=== PATIENT | male | born 1965 | race Caucasian/White ===

== ENCOUNTER 2016-09-08 10:58 | Inpatient (IN) | payer BC ==
[~2016-09-08] VITALS: Ht 175.3 cm; Wt 120.2 kg
[2016-09-08 11:00] VITALS: BP 141/93
[2016-09-08] MEDS ORDERED: ATOR10TA PO (11:04)
[2016-09-08] MEDS ORDERED: TAMS0.4C96 PO (11:04)
[2016-09-08] MEDS ORDERED: SPIR25TA PO (11:04)
[2016-09-08] MEDS ORDERED: AMLO5TAB PO (11:04)
[2016-09-08] MEDS ORDERED: BALS750C2 PO (11:04)
--- NOTE | 2016-09-08 11:23 | NUR ---
Patient ambulated to bed 05.
--- NOTE | 2016-09-08 11:26 | NUR ---
51M BIB FAMILY C/O SHORTNESS OF BREATH W/ PRODUCTIVE COUGH X 2-3 WEEKS; PT STATES SHORTNESS OF BREATH WORSENS W/ ACTIVITY, AND "FEELS FINE" WHEN INACTIVE AND LIEING DOWN; BL LUNG SOUNDS CLEAR, RR EVEN/UNLABORED AT THIS TIME.PT STATES WENT TO SEE PCP AND WAS TOLD HAS "IRREGULAR HEART BEAT"; PT DENIES CHEST PAIN, OR ANY PAIN, N/V/D AT THIS TIME; A&OX4, PERRLA, SKIN IS WARM/DRY/INTACT AT THIS TIME; HX: HTN; PT PLACED ON MONITOR, RESTING IN BED W/ HOB ELEVATED AND IN LOWEST POSITION; POSTIONED FOR COMFORT; ER MD MADE AWARE OF STATUS. WILL CONTINUE TO MONITOR.
--- NOTE | 2016-09-08 11:30 | NUR ---
PT O2 SAT 97 % ON ROOM AIR AT THIS TIME; RR EVEN/UNLABORED; REFUSES SUPPLEMENTARY O2; STATES " I'M BREATHING FINE RIGHT NOW"; WILL CONTINUE TO MONITOR.
--- NOTE | 2016-09-08 11:42 | NUR ---
Dr. Gann evaluating patient at bedside.
--- NOTE | 2016-09-08 12:00 | NUR ---
LAB at bedside.
[2016-09-08 12:08] LABS: BASOPHILS # (AUTO) 0.3 K/uL (0.00-0.22); BASOPHILS % (AUTO) 3.2 % (0.0-2.0); EOSINOPHILS # (AUTO) 0.2 K/uL (0-0.4); EOSINOPHILS % (AUTO) 2.5 % (0.0-4.0); HEMATOCRIT 50.6 % (36-52); HEMOGLOBIN 16.2 g/dL (12.0-18.0); LYMPHOCYTES # (AUTO) 2.3 K/uL (2.0-11.5); MEAN CORPUSCULAR HEMOGLOBIN 25 pg (27-31); MEAN CORPUSCULAR HGB CONC 32 g/dL (33-37); MEAN CORPUSCULAR VOLUME 79 fL (80-94); MONOCYTES # (AUTO) 0.8 K/uL (0.8-1.0); MONOCYTES % (AUTO) 8.9 % (1.7-9.3); NEUTROPHILS # (AUTO) 5.4 K/uL (1.8-7.7); NEUTROPHILS % (AUTO) 59.4 % (42.2-75.2); PLATELET COUNT (AUTO) 228 K/uL (140-450); RED CELL DISTRIBUTION WIDTH 14.2 % (11.6-13.7)
[2016-09-08 12:17] LABS: ANION GAP 14.1 (8-16); CALCIUM 9.1 mg/dL (8.5-10.1); CARBON DIOXIDE 26.5 mmol/L (21-32); CREATININE 0.9 mg/dL (0.6-1.3); POTASSIUM 3.6 mmol/L (3.5-5.1)
[2016-09-08 12:22] LABS: ALBUMIN 3.6 g/dL (3.4-5.0); TOTAL BILIRUBIN 0.5 mg/dL (0.0-1.0); TOTAL PROTEIN, SERUM 7.9 g/dL (6.4-8.2)
[2016-09-08] MEDS ORDERED: ASPIRIN 325 MG TAB PO ONE (12:25)
[2016-09-08 12:27] LABS: PARTIAL THROMBOPLASTIN TIME 31.6 secs (22-35.6); PROTHROMBIN TIME 9.7 secs (10.8-13.4)
--- NOTE | 2016-09-08 12:30 | NUR ---
RPatient appears to be resting comfortably in bed. Vital Signs within normal limits. Respirations even and unlabored. PT DENIES ACUTE DISTRESS AT THIS TIME; FAMILY AT BEDSIDE; WILL CONTINUE TO MONITOR.
[2016-09-08] MEDS ORDERED: LORazepam 1 MG TAB PO PRN (12:40)
[2016-09-08] MEDS ORDERED: HYDROcodone/APAP 5/325 MG 1 TAB TAB PO PRN (12:40)
[2016-09-08] MEDS ORDERED: ALUMINUM HYD/MAG/SIMETHICONE 30 ML UDC PO PRN (12:40)
[2016-09-08] MEDS ORDERED: ONDANSETRON 4 MG/2 ML VIAL IVP PRN (12:40)
[2016-09-08] MEDS ORDERED: NITROGLYCERIN 0.4 MG TAB SL PRN (12:40)
[2016-09-08] MEDS ORDERED: MORPHINE SULFATE 2 MG/ML SYR IVP PRN (12:40)
[2016-09-08] MEDS ORDERED: ZOLPIDEM 5 MG TAB PO PRN (12:40)
[2016-09-08] MEDS ORDERED: ACETAMINOPHEN 325 MG TAB PO PRN (12:40)
--- NOTE | 2016-09-08 12:41 | NUR ---
CALLED TO GIVE REPORT TO [facility]; RN WILL CALL BACK.
--- NOTE | 2016-09-08 12:58 | NUR ---
CALLED [facility] TO GIVE REPORT; RN ASSIGNED TO PT GIVING REPORT FOR A PT BEING TRANSFERRED; WILL CALL BACK FOR REPORT.
[2016-09-08] MEDS ORDERED: BALSALAZIDE DISODIUM 750 MG PO SCH (13:00)
--- NOTE | 2016-09-08 13:19 | NUR ---
CALLED [facility] TO GIVE REPORT; SUPERVISOR BRINE STATED RN GIVING REPORT AND TRANSFERRING ANOTHER PT ANOTHER FACILITY; RN TO CALL BACK FOR REPORT.
--- NOTE | 2016-09-08 13:37 | NUR ---
REPORT GIVEN TO ADRIANE REYNOSO.
--- NOTE | 2016-09-08 13:45 | NUR ---
Patient will be admitted to care of DR. Amanda ROTH. Admited to TELEMTRY. Will go to room 120A. Belongings list completed. Report to ADRIANE REYNOSO.
--- NOTE | 2016-09-08 13:45 | NUR ---
Patient being taken to TELE via lanette chu/RN.
[2016-09-08 13:50] VITALS: BP 116/81
--- NOTE | 2016-09-08 13:50 | NUR ---
PT ARRIVED FROM ER VIA GURNEY. PT IS AAOX4, ON ROOM AIR, IV TO LEFT FA 20G SALINE LOCK PATENT AND INTACT. PT STATES NO SOB OR CHEST PAIN AT THIS TIME. PT IS AMBULATORY, SKIN INTACT. INITIAL ASSESSMENT COMPLETED, REVIEWED PLAN OF CARE WIT PT, PT VERBALIZED UNDERSTANDING. ORIENTED PT TO ROOM AND ENVIRONMENT, ALL SAFETY PRECAUTIONS MET.
[2016-09-08 16:00] VITALS: BP 119/68
--- NOTE | 2016-09-08 16:10 | NUR ---
PT CURRENTLY VISITING WITH FAMILY. PT STATES NO SOB OR CHEST PAIN. ALL NEEDS MET. CALL LIGHT WITHIN REACH, WILL CONTINUE TO MONITOR.
[2016-09-08 18:57] LABS: CREATINE KINASE MB 0.8 ng/mL (0-3.6)
--- NOTE | 2016-09-08 19:21 | NUR ---
ENDORSED PLAN OF CARE TO NIGHT NURSE, PT IN STABLE CONDITION.
--- NOTE | 2016-09-08 19:45 | NUR ---
RECEIVED PT IN STABLE CONDITION FROM AM NURSE. AWAKE,ALERT AND ORIENTED X4. ON TELE MONITOR. NO C/O LUCIO DISCOMFORT NOR PAIN NOTED. HL ON THE LT FA#20. CLEAR AND PATENT. FAMILY AT BEDSIDE. MADE AWARE OF THE STRESS TEST IN AM. VERBALIZED UNDERSTANDING. CALL LIGHT AND URINAL PLACED WITHIN EASY REACH. WILL CONTINUE TO MONITOR.
[2016-09-08 20:35] VITALS: BP 128/68
[2016-09-08] MEDS ORDERED: ATORVASTATIN 20 MG TAB PO SCH (21:00)
--- NOTE | 2016-09-08 23:00 | NUR ---
SLEEPING WELL AT THIS TIME. NO S/S OF ANY DISCOMFORT NOTED.
[2016-09-09 00:15] VITALS: BP 128/74
--- NOTE | 2016-09-09 01:25 | NUR ---
HR ON THE MONITOR 48/MIN. ASSESSED PT. SLEEPING. WOKE UP . NO DISTRESS NOTED. EXPLAINED THAT WE WANT TO MAKE SURE HE IS OK .
[2016-09-09 02:40] LABS: CREATINE KINASE MB 0.6 ng/mL (0-3.6)
--- NOTE | 2016-09-09 03:00 | NUR ---
ASLEEP/ NO S/S OF ANY DISCOMFORT NOTED. WILL CONTINUE TO MONITOR.
[2016-09-09 04:45] VITALS: BP 107/68
[2016-09-09 05:57] LABS: BASOPHILS # (AUTO) 0.1 K/uL (0.00-0.22); EOSINOPHILS # (AUTO) 0.2 K/uL (0-0.4); EOSINOPHILS % (AUTO) 2.4 % (0.0-4.0); HEMATOCRIT 48.1 % (36-52); HEMOGLOBIN 15.4 g/dL (12.0-18.0); LYMPHOCYTES # (AUTO) 2.3 K/uL (2.0-11.5); LYMPHOCYTES % (AUTO) 28.2 % (20.5-51.1); MEAN CORPUSCULAR HEMOGLOBIN 25 pg (27-31); MEAN CORPUSCULAR HGB CONC 32 g/dL (33-37); MEAN CORPUSCULAR VOLUME 79 fL (80-94); MONOCYTES # (AUTO) 0.6 K/uL (0.8-1.0); MONOCYTES % (AUTO) 7.4 % (1.7-9.3); PLATELET COUNT (AUTO) 218 K/uL (140-450); RED BLOOD CELL COUNT(AUTO) 6.08 MIL/uL (4.20-6.10); RED CELL DISTRIBUTION WIDTH 13.7 % (11.6-13.7); WHITE BLOOD COUNT (AUTO) 8.2 K/uL (4.8-10.8)
[2016-09-09 06:35] LABS: MAGNESIUM 2.2 mg/dL (1.8-2.4)
[2016-09-09 06:38] LABS: ANION GAP 10.2 (8-16); CALCIUM 8.8 mg/dL (8.5-10.1); CARBON DIOXIDE 30.5 mmol/L (21-32); CREATININE 0.9 mg/dL (0.6-1.3); POTASSIUM 3.7 mmol/L (3.5-5.1)
--- NOTE | 2016-09-09 06:50 | NUR ---
DR. GONZALEZ Huerta WAS PAGED DUE TO EPISODES OF SB NON CONDUCTIVE PAC ,LATEST 39/MIN. CALLED BACK . MADE AWARE. NO NEW ORDER MADE.
--- NOTE | 2016-09-09 07:25 | NUR ---
RECEIVED REPORT FROM NIGHT NURSE. PT IS AAOX4, ON ROOM AIR, IV TO LEFT FA 20G SALINE LOCK PATENT AND INTACT. PT STATES NO SOB OR CHEST PAIN AT THIS TIME. PT IS AMBULATORY, SKIN INTACT. INITIAL ASSESSMENT COMPLETED, REVIEWED PLAN OF CARE WIT PT, PT VERBALIZED UNDERSTANDING. ALL SAFETY PRECAUTIONS MET.
--- NOTE | 2016-09-09 07:25 | NUR ---
ENDORSED PT IN STABLE CONDITION TO AM NURSE.
[2016-09-09 08:00] VITALS: BP 123/68
[2016-09-09] MEDS ORDERED: amLODIPine 5 MG TAB PO SCH (09:00)
[2016-09-09] MEDS ORDERED: DOCUSATE SODIUM 100 MG GELCAP PO SCH (09:00)
[2016-09-09] MEDS ORDERED: TAMSULOSIN 0.4 MG CAP PO SCH (09:00)
[2016-09-09] MEDS ORDERED: SPIRONOLACTONE 25 MG TAB PO SCH (09:00)
--- NOTE | 2016-09-09 09:30 | NUR ---
STRESS TEST DONE.
--- NOTE | 2016-09-09 09:36 | NUR ---
DUE MEDICATIONS GIVEN. PT TOLERATED WELL, PT CURRENTLY RESTING IN BED. ALL NEEDS MET. CALL LIGHT WITHIN REACH. WILL CONTINUE TO MONITOR.
--- NOTE | 2016-09-09 10:21 | NUR ---
PATIENT HAS BEEN SCREENED AND CATEGORIZED HIGH NUTRITION RISK. PATIENT WILL BE SEEN WITHIN 1-2 DAYS OF ADMISSION. 09/08/16-09/09/[address]
[2016-09-09 12:00] VITALS: BP 133/77
[2016-09-09] MEDS: BALSALAZIDE 750 MG PO SCH ×2 (12:18→16:31)
--- NOTE | 2016-09-09 12:19 | NUR ---
DUE MEDICATIONS GIVEN, PT CURRENTLY VISITING WITH FAMILY MEMBER, ALL NEEDS MET. CALL LIGHT WITHIN REACH. WILL CONTINUE TO MONITOR.
--- NOTE | 2016-09-09 14:25 | NUR ---
PT CURRENTLY SLEEPING, CALL LIGHT WITHIN REACH. WILL CONTINUE TO MONITOR.
--- NOTE | 2016-09-09 15:11 | NUR ---
09/09/16 RD INITIAL ASSESSMENT COMPLETED PLEASE REFER TO NUTRITION ASSESSMENT UNDER CARE ACTIVITY FOR ESTIMATED NUTRITIONAL NEEDS. 1. CONTINUE CARDIAC DIET 2. RD TO FOLLOW-UP 7 DAYS; LOW RISK EDUARDO LAMAR RD
[2016-09-09 16:00] VITALS: BP 120/75
--- NOTE | 2016-09-09 16:31 | NUR ---
DUE MEDICATIONS GIVEN, AT BEDSIDE. ALL NEEDS MET. CALL LIGHT WITHIN REACH. WILL CONTINUE TO MONITOR.
--- NOTE | 2016-09-09 17:28 | NUR ---
DISCUSSED DISCHARGE PLAN WITH PT, PT VERBALIZED UNDERSTANDING. AT BEDSIDE.
--- NOTE | 2016-09-09 17:45 | NUR ---
PT SIGNED ALL DISCHARGE PAPERWORK, IV REMOVED TIP INTACT. DISCHARGE EDUCATION GIVEN PT VERBALIZED UNDERSTANDING, ALL ARM BANDS REMOVED, ALL PERSONAL BELONGINGS WITH PT.
--- NOTE | 2016-09-09 17:50 | NUR ---
PT WAS WALKED TO FRONT LOBBY IN STABLE CONDITION ACCOMPANIED BY .
== END 2016-09-09 17:50 | disposition home or self-care (01) | DRG 309 ==
LOC: MED 10:58 → MTU 12:44
PROVIDERS: ADMIT Preventive Medicine Preventive Medicine/Occupational Environmental Medicine; ATTEND Preventive Medicine Preventive Medicine/Occupational Environmental Medicine
DX: I49.9 Cardiac arrhythmia, unspecified (principal); I42.9 Cardiomyopathy, unspecified; I10 Essential (primary) hypertension; Z68.39 Body mass index [BMI] 39.0-39.9, adult; E66.09 Other obesity due to excess calories; I25.10 Atherosclerotic heart disease of native coronary artery without angina pectoris; N40.0 Benign prostatic hyperplasia without lower urinary tract symptoms; E78.5 Hyperlipidemia, unspecified; Z90.79 Acquired absence of other genital organ(s)
CPT/HCPCS: 36415; 71010; 80048; 80053; 82550; 82553; 83735; 83880; 84100; 84484; 85025; 85610; 85730; 87081; 93005; 93017; 93970; 99285; J1644; Q0092

== ENCOUNTER 2020-04-14 11:04 | Emergency (ER) | payer BC ==
[~2020-04-14] VITALS: Ht 177.8 cm; Wt 131.2 kg
[~2020-04-14 11:04] MED LIST: AMLO5TAB PO; ATOR10TA PO; BALS750C2 PO; SPIR25TA PO; TAMS0.4C96 PO
[2020-04-14 11:10] VITALS: BP 153/94
--- NOTE | 2020-04-14 11:20 | NUR ---
PT AMBULATED TO BED 12.
--- NOTE | 2020-04-14 12:25 | NUR ---
Patient discharged with v/s stable. Written and verbal after care instructions given and explained. Patient verbalized understanding. Ambulatory with steady gait. All questions addressed prior to discharge. Advised to follow up with PMD. No nursing care provided to the pt in our er.
== END 2020-04-14 12:25 | disposition home or self-care (01) ==
LOC: MED 11:04
DX: T18.5XXA Foreign body in anus and rectum, initial encounter (principal); I10 Essential (primary) hypertension; Z98.890 Other specified postprocedural states; Z79.899 Other long term (current) drug therapy; X58.XXXA Exposure to other specified factors, initial encounter; Y93.89 Activity, other specified; Y92.89 Other specified places as the place of occurrence of the external cause; Y99.8 Other external cause status
CPT/HCPCS: 99284